=== PATIENT | female | born 1955 | race Asian ===

== ENCOUNTER 2017-01-04 09:00 | Emergency (ER) | payer BC ==
[~2017-01-04] VITALS: Ht 167.6 cm; Wt 110.7 kg
[2017-01-04 09:00] VITALS: TEMP 98
[2017-01-04 11:56] LABS: PLATELET COUNT 195 K/uL (152-353)
[2017-01-04 12:13] LABS: SODIUM 133 mmol/L (136-145)
[2017-01-04 12:52] VITALS: BP 152/78
== END 2017-01-04 12:53 | disposition home or self-care (01) ==
LOC: ED 09:00
PROVIDERS: Specialist
DX: R10.9 Unspecified abdominal pain (principal); K75.9 Inflammatory liver disease, unspecified
CPT/HCPCS: 36415; 74022; 80053; 81000; 85027; 99283

== ENCOUNTER 2017-01-07 08:30 | Inpatient (IN) | payer BC ==
[2017-01-07] VITALS (9 sets, daily range): BP systolic 97–157; BP diastolic 58–94; TEMP 97.9–101.5; Ht 167.6 cm; Wt 125.2 kg
[~2017-01-07] VITALS: Ht 167.6 cm; Wt 125.2 kg
[2017-01-07 10:12] LABS: POTASSIUM 3.7 mmol/L (3.6-5.2)
[2017-01-07 10:13] LABS: PLATELET COUNT 215 K/uL (152-353)
[2017-01-08] VITALS (11 sets, daily range): BP systolic 97–132; BP diastolic 53–76; TEMP 99.3–99.6
[2017-01-08 07:05] LABS: PLATELET COUNT 269 K/uL (152-353)
[2017-01-09] VITALS (15 sets, daily range): BP systolic 91–135; BP diastolic 45–779; TEMP 98.1–99
[2017-01-09 06:35] LABS: PLATELET COUNT 124 K/uL (152-353)
[2017-01-09 06:43] LABS: POTASSIUM 4.7 mmol/L (3.6-5.2)
[2017-01-10] VITALS (13 sets, daily range): BP systolic 91–129; BP diastolic 52–91; TEMP 97.8–99
[2017-01-10 08:18] LABS: PLATELET COUNT 116 K/uL (152-353)
[2017-01-10 11:10] LABS: PARTIAL THROMBOPLASTIN TIME 28.8 SECONDS (24.5-33.6)
== END 2017-01-10 19:45 | disposition short-term general hospital (02) | DRG 419 ==
LOC: ED 08:30 → MED/SURG 17:00 → ICU 01-08 15:20
PROVIDERS: Family Medicine; Specialist; ADMIT Student in an Organized Health Care Education/Training Program
PROC: 0FT44ZZ Resection of Gallbladder, Percutaneous Endoscopic Approach (ICD-10-PCS; principal; 2017-01-08)
PROC: BF14YZZ Fluoroscopy of Gallbladder, Bile Ducts and Pancreatic Ducts using Other Contrast (ICD-10-PCS; 2017-01-08)
DX: K81.0 Acute cholecystitis (principal); K81.1 Chronic cholecystitis; E66.8 Other obesity; Z68.39 Body mass index [BMI] 39.0-39.9, adult; Z71.3 Dietary counseling and surveillance; D72.828 Other elevated white blood cell count; I95.89 Other hypotension; N28.9 Disorder of kidney and ureter, unspecified; R06.82 Tachypnea, not elsewhere classified
CPT/HCPCS: 36415; 36600; 80048; 80053; 80074; 81000; 82140; 82150; 82550; 82570; 82805; 83605; 83690; 83735; 83880; 84100; 84300; 84540; 85007; 85027; 85379; 85610; 85730; 86644; 86665; 86695; 86696; 87040; 87804; 87880; 93005; 94760; 96361; 96365; 96366; 96367; 96372; 96375; 99220; 99284; C1887; G0378; J0330; J1100; J1170; J1644; J1885; J1940; J2001; J2175; J2250; J2270; J2310; J2405; J2543; J2704; J2710; J2765; J3010; J3411; J3475; J3490; P9047; S0028

== ENCOUNTER 2017-01-10 19:20 | Outpatient (CLI) | payer BC | END 2017-01-10 20:52 | disposition short-term general hospital (02) | LOC: AMB 19:20 | DX: K81.0 Acute cholecystitis (principal); K81.1 Chronic cholecystitis; E66.8 Other obesity; Z86.39 Personal history of other endocrine, nutritional and metabolic disease; Z71.3 Dietary counseling and surveillance; D72.828 Other elevated white blood cell count; I95.89 Other hypotension; N28.9 Disorder of kidney and ureter, unspecified; R06.82 Tachypnea, not elsewhere classified | CPT/HCPCS: A0425; A0427 ==